=== PATIENT | female | born 1960 | race Caucasian/White ===

== ENCOUNTER 2016-11-17 16:00 | Outpatient (CLI) | payer BC | END 2016-11-17 16:34 | LOC: D.MAMMO 16:00 | DX: Z12.31 Encounter for screening mammogram for malignant neoplasm of breast (principal) ==

== ENCOUNTER 2019-01-24 08:39 | Day surgery (SDC) | payer BC ==
[2019-01-23 16:20] LABS: HEMATOCRIT 37.9 % (36.0-48.0); HEMOGLOBIN 12.7 g/dL (12-16); MCHC 33.5 g/dL (31.0-37.0); MCV 92.4 fL (80.0-100.0); MEAN PLATELET VOLUME 10.2 fL (7.4-10.4); RBC 4.1 10x6/uL (4.00-5.40); RDW 13.5 % (11.5-14.5); WBC 9.4 10x3/uL (4.8-10.8)
[~2019-01-24] VITALS: Ht 165.1 cm; Wt 108.9 kg
[~2019-01-24 08:39] MED LIST: BLACK COHOSH200 MG PO; CENTRUM SILVER1 EAC3 PO; ENALAPRIL; FEXOFENADINE HC60 MG PO; FLUTICASONE PRO16 GM NASAL; HAIR,SKIN AND NAILS PO; HCTZ; MECLIZINE HCL25 MG PO; OSTEO BI-FLEX1 EAC1 PO; PHENERGAN25 M1 PO; PRIMROSE PO; RELPAX40 MG PO
[2019-01-24 09:46] VITALS: BP 104/56; Ht 165.1 cm; Wt 108.9 kg
[2019-01-24] MEDS ORDERED: PERCOCET 5-3251 TAB PO (11:24)
--- NOTE | 2019-01-24 12:32 | OP ---
PATIENT NAME: PRAMOD BLUNT MEDICAL RECORD: [id number] :60 LOCATION:[facility] ADMISSION DATE: SURGEON: KEE MONTES DO DATE OF OPERATION: 01/24/2019 PROCEDURE PERFORMED: Left knee arthroscopy with the partial medial and partial lateral meniscectomy, patellar abrasion chondroplasty. 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 INDICATIONS: Ms. Dominguez is a 58-year-old female who had an MRI of her knee. She did not appear on x-ray to have much chondromalacia or arthritis, but the MRI indicated she had mild arthritis and had a meniscal tear. She had more symptoms of popping, catching, locking, then stiffness and osteoarthritis symptoms, so I told her we could scope her knee, trim out the meniscus, and hopefully give her some relief. She was aware of that and aware of the risks. Due to the fact she did have some arthritis, this may not work completely and she may need surgery in the future. She is also aware of the risks of infection, bleeding, damage to nerves and vessels, blood clots, and even and she signed the consent. SURGEON: Kee Montes DO DESCRIPTION OF PROCEDURE: The patient was taken to the operative suite, laid in supine position, given general anesthetic and LMA was placed. She was given 2 grams of Ancef preoperatively. Left lower extremity was prepped and draped in sterile fashion. Timeout was performed, everyone was in agreement of the correct side, site, patient and procedure. The procedure then began with injecting the medial and lateral portal sites with 0.25% Marcaine with epinephrine. The lateral portal was then established with an 11-blade scalpel and the trocar was entered into the knee. The suprapatellar pouch was inspected. No loose body was seen in it as well as the medial and lateral gutters. The knee was then flexed down and the medial compartment was entered. The medial portal was incised with an 18-gauge spinal needle and 11-blade scalpel. The probe was then brought in and probed the medial meniscus seeing a tear from the middle portion, middle half to the posterior half was torn. The shaver and biter were brought in and this was trimmed out back to a stable position. The grade III chondromalacia was noted on the medial femoral condyle as well. The ACL was then probed. A shaver was removed. ACL was probed with the probe and seen to be in good position. The knee was then [id number]'ed and the lateral compartment was entered. The meniscus was seen to be torn on periphery in the posterior horn and a partial tear in the meniscus about the middle part. This was trimmed out with a shaver and a biter and back to a stable point. The knee was then brought to extension and the abrasion chondroplasty was done with the shaver on the patella. All of the cartilage that was hanging off was removed with a shaver. The water was turned off. Suction was turned on. The excess fluid was removed from the knee. The portal sites were then closed with 4-0 Monocryl in inverted interrupted fashion. Steri-Strips, Adaptic, 4 x 4's, ABD, Webril, Johnson wrap and EVELIO hose stockinette was placed up to the knee. She was then awakened and taken to recovery in stable condition. OPERATIVE REPORT [id number] PRAMOD BLUNT BLOOD LOSS: Minimal. COMPLICATIONS: None. TRANSINT:[id number] Voice Confirmation ID: [id number] DOCUMENT ID: [id number] KEE MONTES DO at 1232 CC: [id number] DICTATION DATE: 01/24/19 1129 MINING SPECULATOR: 01/24/19 [id number] [place] [address]
== END 2019-01-24 12:55 | disposition home or self-care (01) ==
LOC: D.OPS 08:39
PROVIDERS: Anesthesiology; ATTEND Orthopaedic Surgery
DX: S83.282A Other tear of lateral meniscus, current injury, left knee, initial encounter (principal); S83.242A Other tear of medial meniscus, current injury, left knee, initial encounter; X58.XXXA Exposure to other specified factors, initial encounter; M22.42 Chondromalacia patellae, left knee